=== PATIENT | female | born 1940 | race Caucasian/White ===

== ENCOUNTER → 2017-06-08 | Outpatient (CLI) | payer MEDICARE ==
[~2017-06-08] MED LIST: 8 Hour C500 MG PO; ALEN70 PO; BISA10S PR; CALCAVITD PO; CALCAVITDA PO; CELE200; CELE200 PO; CONEST.625; Calcium Magnes1 EACH PO; DICL25ER PO; DOCU100 PO; ERGO50000 PO; FERGLU300; FERR325 PO; GINKGO BILOBA PO; GINKGO BILOBA120 MG PO; GLUC500 PO; GLUCOSAMINE-MS1 EACH PO; HYDSUL200; HYDSUL200 PO; LEVO750 PO; LEVSOD100; LEVSOD100 PO; LIALDA PO; Lialda1.2 GM PO; MAGN84 PO; MECL25 PO; MESA400ER; Milk Of Ma800 MG/5 M PO; NIFE20; NIFE30ER PO; OMEP40CA12 PO; OXYACE5T PO; OXYC10ER PO; OXYC1TAB11 PO; POTASSIUM GLUC500 MG PO; POTASSIUM GLUCONATE PO; Percocet 5-3251 EACH PO; Prilosec Otc20 MG PO; RXOXYACE PO; SACC250C PO; VALA500 PO; VENL150ER PO; VENL75ER; Zanaflex4 MG PO; [UNRECOGNIZED DRUG - OTHER] PO
== END | disposition home or self-care (01) ==
LOC: LAB SHORT 08:39 → PLD 08:39
DX: C44.319 Basal cell carcinoma of skin of other parts of face (principal)
CPT/HCPCS: 88305

== ENCOUNTER → 2017-06-16 | Outpatient (CLI) | payer MEDICARE ==
[2017-06-18 12:41] LABS: HPV Genotype 16 Not Detected (NOTDET); HPV Genotype 18 Not Detected (NOTDET)
[2017-06-23 11:49] LABS: HPV High Risk Other Not Detected (NOTDET)
== END | disposition home or self-care (01) ==
LOC: OLS 17:17
PROVIDERS: Nurse Practitioner Women's Health
DX: Z12.72 Encounter for screening for malignant neoplasm of vagina (principal); Z91.89 Other specified personal risk factors, not elsewhere classified
CPT/HCPCS: 87624; G0123

== ENCOUNTER → 2017-09-09 | Outpatient (CLI) | payer MEDICARE | LOC: LAB SHORT 10:15 → PLD 10:15 | DX: D48.5 Neoplasm of uncertain behavior of skin (principal) | CPT/HCPCS: 88305 ==

== ENCOUNTER → 2018-06-21 | Outpatient (CLI) | payer MEDICARE ==
[2018-06-23 16:07] LABS: HPV 16 Negative (Negative); HPV 18 Negative (Negative); HPV OTHER HR TYPES Negative (Negative)
== END | disposition home or self-care (01) ==
LOC: LAB 18:45 → LAB SHORT 18:45
PROVIDERS: Nurse Practitioner Women's Health
DX: Z12.72 Encounter for screening for malignant neoplasm of vagina (principal); Z91.89 Other specified personal risk factors, not elsewhere classified
CPT/HCPCS: 87624; G0123

== ENCOUNTER → 2018-09-19 | Outpatient (CLI) | payer MEDICARE ==
[2018-09-21 17:06] LABS: HPV 16 Negative (Negative); HPV 18 Negative (Negative); HPV OTHER HR TYPES Negative (Negative)
== END | disposition home or self-care (01) ==
LOC: LAB SHORT 18:01 → LAB 18:01
PROVIDERS: Nurse Practitioner Women's Health
DX: Z12.72 Encounter for screening for malignant neoplasm of vagina (principal); Z91.89 Other specified personal risk factors, not elsewhere classified
CPT/HCPCS: 87624; G0123

== ENCOUNTER 2019-10-25 20:35 | Emergency (ER) | payer MEDICARE ==
[~2019-10-25] VITALS: Ht 162.6 cm; Wt 72.6 kg
[~2019-10-25 20:35] MED LIST changes: +ACET325 PO; +AMLO5 PO; +EUTHYROX88 MCG PO; +FERSU300 PO; +FLONASE ALLERG9.9 M2 NS; +LISI5 PO; +OMEP20ER PO; +RECLAST 55 MG/100 M IV; +Zovirax Cream 5%2 GM
== END 2019-10-25 21:44 | disposition home or self-care (01) ==
LOC: ER 20:35
DX: Z04.3 Encounter for examination and observation following other accident (principal); Z88.1 Allergy status to other antibiotic agents; Z88.5 Allergy status to narcotic agent; Z88.6 Allergy status to analgesic agent; Z88.8 Allergy status to other drugs, medicaments and biological substances; Z79.899 Other long term (current) drug therapy; Z87.891 Personal history of nicotine dependence; W19.XXXA Unspecified fall, initial encounter
CPT/HCPCS: 93005; 93010; 99284-25

== ENCOUNTER 2020-08-19 13:45 | Day surgery (SDC) | payer MEDICARE ==
[~2020-08-19] VITALS: Ht 160 cm; Wt 98.3 kg
== END 2020-08-19 15:28 | disposition home or self-care (01) ==
LOC: ORSCSDS 13:45
PROVIDERS: Internal Medicine Gastroenterology
PROC: 0DJ08ZZ Inspection of Upper Intestinal Tract, Via Natural or Artificial Opening Endoscopic (ICD-10-PCS; principal; 2020-08-19 14:15)
DX: R13.10 Dysphagia, unspecified (principal); K51.30 Ulcerative (chronic) rectosigmoiditis without complications; R10.13 Epigastric pain; K44.9 Diaphragmatic hernia without obstruction or gangrene; K20.80 Other esophagitis without bleeding; R93.89 Abnormal findings on diagnostic imaging of other specified body structures; F17.210 Nicotine dependence, cigarettes, uncomplicated; Z79.899 Other long term (current) drug therapy
CPT/HCPCS: J2704; J7120

== ENCOUNTER 2021-03-25 05:42 | Inpatient (IN) | payer MEDICARE ==
[~2021-03-25] VITALS: Ht 162.6 cm; Wt 76.5 kg
--- NOTE | 2021-03-25 06:52 | NUR ---
History, Chart, Medications and Allergies reviewed before start of procedure. Patient confirms NPO status and agrees with scheduled surgery. Lungs clear T/O to Auscultation.
[2021-03-25] MEDS ORDERED: CYCL10 PO (06:54)
--- NOTE | 2021-03-25 10:49 | NUR ---
RESUMED CARE OF PATIENT. BIOX 98% ON 2L O2 VIA NC. NC REMOVED. NOW BREATING RA. WILL CONTINUE TO ASSESS VS. ALERT. TALKING. C/O 4/10 ACHING PAIN TO UPPER MIDDLE ABDOMEN. STATES PAIN IS TOLERABLE. DENIES NAUSEA. TOLERATING SIPS OF WATER.
--- NOTE | 2021-03-25 11:24 | NUR ---
DR MONROE AT BEDSIDE SPEAKING TO PATIENT ABOUT SURGERY FINDINGS.
--- NOTE | 2021-03-25 12:12 | NUR ---
VSS. INCISIONS SITES X5 TO ABDOMEN CLEAN, DRY AND INTACT WITH DERMABOND GLUE. NO NOTED DRAINAGE, SWELLING, ERYTHEMA OR BRUISING NOTED. GAIT STEADY. Discharge instructions reviewed with patient. Patient verbalizes understanding. Copy given to patient to take home. Patient States Post-Procedure ride home has been arranged with her friend.
== END 2021-03-25 12:15 | disposition home or self-care (01) | DRG 328 ==
LOC: SURS 05:42 → PRE IP 07:30 → SURS 12:15
PROVIDERS: ADMIT Surgery
PROC: 0DB64ZX Excision of Stomach, Percutaneous Endoscopic Approach, Diagnostic (ICD-10-PCS; principal; 2021-03-25 07:30)
DX: K44.9 Diaphragmatic hernia without obstruction or gangrene (principal); K21.9 Gastro-esophageal reflux disease without esophagitis; I10 Essential (primary) hypertension; Z20.822 Contact with and (suspected) exposure to COVID-19; K31.9 Disease of stomach and duodenum, unspecified; F41.9 Anxiety disorder, unspecified; Z96.652 Presence of left artificial knee joint; E03.9 Hypothyroidism, unspecified; Z96.1 Presence of intraocular lens; Z96.641 Presence of right artificial hip joint; Z87.19 Personal history of other diseases of the digestive system; Z90.49 Acquired absence of other specified parts of digestive tract; Z98.42 Cataract extraction status, left eye; Z98.41 Cataract extraction status, right eye; Z90.710 Acquired absence of both cervix and uterus; Z98.1 Arthrodesis status; Z79.899 Other long term (current) drug therapy; Z88.5 Allergy status to narcotic agent; Z88.6 Allergy status to analgesic agent; Z88.8 Allergy status to other drugs, medicaments and biological substances; Z87.891 Personal history of nicotine dependence; Z90.89 Acquired absence of other organs
CPT/HCPCS: 88305; 88341; 88342; A9270; J0690; J1100; J2250; J2370; J2405; J2704; J3010; J7120

== ENCOUNTER → 2021-04-22 | Outpatient (CLI) | payer MEDICARE ==
[~2021-04-22] MED LIST changes: +CYCL10 PO
== END | disposition home or self-care (01) ==
LOC: LAB SHORT 14:04 → LAB 14:04
DX: D48.5 Neoplasm of uncertain behavior of skin (principal)
CPT/HCPCS: 88305

== ENCOUNTER → 2021-06-16 | Outpatient (CLI) | payer MEDICARE ==
[2021-06-17 19:27] LABS: Adenovirus F 40/41 Not Detected (NOT DETECT); Astrovirus Not Detected (NOT DETECT); Campylobacter Sp Not Detected (NOT DETECT); Cryptosporidium Not Detected (NOT DETECT); Cyclospora Cayetanensis Not Detected (NOT DETECT); E. Coli O157 Not Detected (NOT DETECT); Entamoeba Histolytica Not Detected (NOT DETECT); Enteroaggregative E. coli-EAEC Not Detected (NOT DETECT); Enteropathogenic E. coli-EPEC Not Detected (NOT DETECT); Enterotoxigenic E. coli-ETEC Not Detected (NOT DETECT); Giardia Lamblia Not Detected (NOT DETECT); Norovirus GI/GII Not Detected (NOT DETECT); Plesiomonas Shigelloides Not Detected (NOT DETECT); Rotavirus A Not Detected (NOT DETECT); Salmonella Sp Not Detected (NOT DETECT); Sapovirus Not Detected (NOT DETECT); Shiga Toxin-prod E. coli-STEC Not Detected (NOT DETECT); Shigella/Enteroin E. coli-EIEC Not Detected (NOT DETECT); Vibrio Cholerae Not Detected (NOT DETECT); Vibrio Sp Not Detected (NOT DETECT); Yersinia Enterocolitica Not Detected (NOT DETECT)
== END ==
LOC: LAB SHORT 19:15
PROVIDERS: Physician Assistant Medical
DX: R19.7 Diarrhea, unspecified (principal)
CPT/HCPCS: 0097U

== ENCOUNTER → 2021-06-16 | Outpatient (CLI) | payer MEDICARE ==
[2021-06-16 15:05] LABS: BASOPHILS PERCENT AUTO 1 % (0-2); EOSINOPHILS ABSOLUTE AUTO 0.66 K/mm3 (0.00-0.68); EOSINOPHILS PERCENT AUTO 7 % (0-6); Hematocrit 39.4 % (33.0-51.0); Hemoglobin 12.8 g/dL (11.5-16.0); IMMATURE GRAN ABSOLUTE AUTO 0.14 K/mm3 (0.00-0.10); IMMATURE GRAN PERCENT AUTO 1 % (0-1); LYMPHOCYTES ABSOLUTE AUTO 1.86 K/mm3 (0.84-5.20); LYMPHOCYTES PERCENT AUTO 19 % (21-46); MONOCYTES ABSOLUTE AUTO 0.86 K/mm3 (0.16-1.47); MONOCYTES PERCENT AUTO 9 % (4-13); Mean Corpuscular HGB 31.3 pg (26.0-34.0); Mean Corpuscular HGB Conc 32.5 g/dL (31.5-36.5); Mean Corpuscular Volume 96 fL (80-100); Mean Platelet Volume 9.7 fL (9.1-12.4); NEUTROPHILS ABSOLUTE AUTO 6.34 K/mm3 (1.96-9.15); NEUTROPHILS PERCENT AUTO 64 % (41-73); Platelet Count 466 K/mm3 (150-400); RDW Coefficient Variation 13.5 % (11.7-14.2); RDW Standard Deviation 48.5 fL (35.1-46.3); Red Blood Cell Count 4.09 M/mm3 (3.80-5.20); White Blood Cell Count 9.96 K/mm3 (4.00-11.30)
[2021-06-16 15:19] LABS: Alanine Aminotransfer (ALT/SGP 22 U/L (12-78); Albumin, Blood 3.3 g/dL (3.4-5.0); Albumin/Globulin Ratio 0.9 (0.8-1.8); Alk Phos 85 U/L (40-126); Anion Gap 13 mmol/L (6-16); Aspartate Aminotrans (AST/SGOT 15 U/L (12-37); Bilirubin, Total 0.2 mg/dL (0.1-1.0); Blood Urea Nitrogen 12 mg/dL (8-24); Bun/Creatinine Ratio 19.4 (12.0-20.0); CO2, Blood 28 mmol/L (21-32); Calcium, Blood 9.2 mg/dL (8.5-10.1); Chloride, Blood 102 mmol/L (98-108); Creatinine, Blood 0.62 mg/dL (0.40-1.00); Globulin, Blood 3.7 g/dL (2.2-4.0); Glomerular Filtration Rate >60 (60-); Glucose, Blood 92 mg/dL (70-99); Potassium, Blood 3.6 mmol/L (3.5-5.5); Sodium, Blood 143 mmol/L (136-145)
== END ==
LOC: LAB SHORT 15:01
PROVIDERS: Physician Assistant Medical
DX: R11.2 Nausea with vomiting, unspecified (principal)
CPT/HCPCS: 80053; 85025

== ENCOUNTER → 2021-08-07 | Outpatient (CLI) | payer MEDICARE | END | disposition home or self-care (01) | LOC: LAB SHORT 12:05 | DX: N39.0 Urinary tract infection, site not specified (principal) | CPT/HCPCS: 87077; 87086; 87186 ==

== ENCOUNTER 2022-04-15 09:23 | Day surgery (SDC) | payer MEDICARE ==
[~2022-04-15] VITALS: Ht 162.6 cm; Wt 68.8 kg
[2022-04-15] MEDS ORDERED: METOPROLOL SUCC25 MG (09:57)
[2022-04-15] MEDS ORDERED: VITAMIN D310 MC4 (09:59)
--- NOTE | 2022-04-15 12:23 | NUR ---
04/15/22 1223 LULU RON PT HAD POOR VEINS/DIFFICULT GETTING AN IV 2 STAFF RNS AND AND MA ATTEMPTED 6 TIMES AND A FUNERAL COUNSELOR WAS SUCCESSFUL ON THE 7TH START RIGHT HAND. PT HAD INJURED HER LEFT HAND 3 DAYS PRIOR AND HAD SWELLING. PT ALSO CAME IN WITH CONTUSION /RUPTURED CAPILARIES IN THE RIGHT HAND. TOLD PT TO USE WARM PACKS TO BRUISING/ LEAVE COBAN ON IV SITES FOR 1 HR BEFOR REMOVING. PT HAD NO C/O OF PAIN OR DISCOMFORT WHEN ASKED.
== END 2022-04-15 12:11 | disposition home or self-care (01) ==
LOC: ORSCSDS 09:23
PROVIDERS: Internal Medicine Gastroenterology
PROC: 0DBE8ZX Excision of Large Intestine, Via Natural or Artificial Opening Endoscopic, Diagnostic (ICD-10-PCS; principal; 2022-04-15 10:30)
PROC: 0DBM8ZX Excision of Descending Colon, Via Natural or Artificial Opening Endoscopic, Diagnostic (ICD-10-PCS; principal; 2022-04-15 10:30)
DX: K51.30 Ulcerative (chronic) rectosigmoiditis without complications (principal); K51.40 Inflammatory polyps of colon without complications; Z87.891 Personal history of nicotine dependence; Z79.899 Other long term (current) drug therapy
CPT/HCPCS: 88305; J2704; J7120

== ENCOUNTER → 2022-04-21 | Outpatient (CLI) | payer MEDICARE ==
[~2022-04-21] MED LIST changes: +METOPROLOL SUCC25 MG; +VITAMIN D310 MC4
[2022-04-21 12:55] LABS: BASOPHILS PERCENT AUTO 1 % (0-2); EOSINOPHILS ABSOLUTE AUTO 0.31 K/mm3 (0.00-0.68); EOSINOPHILS PERCENT AUTO 4 % (0-6); Hematocrit 40.6 % (33.0-51.0); Hemoglobin 12.9 g/dL (11.5-16.0); IMMATURE GRAN ABSOLUTE AUTO 0.02 K/mm3 (0.00-0.10); IMMATURE GRAN PERCENT AUTO 0 % (0-1); LYMPHOCYTES ABSOLUTE AUTO 2.05 K/mm3 (0.84-5.20); LYMPHOCYTES PERCENT AUTO 29 % (21-46); MONOCYTES ABSOLUTE AUTO 0.69 K/mm3 (0.16-1.47); MONOCYTES PERCENT AUTO 10 % (4-13); Mean Corpuscular HGB 30.4 pg (26.0-34.0); Mean Corpuscular HGB Conc 31.8 g/dL (31.5-36.5); Mean Corpuscular Volume 96 fL (80-100); Mean Platelet Volume 11.3 fL (9.1-12.4); NEUTROPHILS ABSOLUTE AUTO 4.03 K/mm3 (1.96-9.15); NEUTROPHILS PERCENT AUTO 56 % (41-73); Platelet Count 288 K/mm3 (150-400); RDW Coefficient Variation 14.3 % (11.7-14.2); RDW Standard Deviation 49.9 fL (35.1-46.3); Red Blood Cell Count 4.25 M/mm3 (3.80-5.20)
[2022-04-21 15:21] LABS: Bun/Creatinine Ratio 26.4 (12.0-20.0); Calcium, Blood 9.4 mg/dL (8.5-10.1); Creatinine, Blood 0.65 mg/dL (0.40-1.00); Potassium, Blood 4.1 mmol/L (3.5-5.5)
== END | disposition home or self-care (01) ==
LOC: LAB SHORT 11:13 → LAB 11:13
PROVIDERS: Internal Medicine Gastroenterology
DX: K51.30 Ulcerative (chronic) rectosigmoiditis without complications (principal)
CPT/HCPCS: 36415; 80048; 85025

== ENCOUNTER → 2022-10-13 | Outpatient (CLI) | payer MEDICARE | END | disposition home or self-care (01) | LOC: PLD 11:16 → LAB SHORT 11:16 | DX: L57.0 Actinic keratosis (principal) | CPT/HCPCS: 88305 ==

== ENCOUNTER → 2024-08-04 | Outpatient (CLI) | payer MEDICARE | LOC: LAB 17:08 → LAB SHORT 17:08 | DX: R30.0 Dysuria (principal) | CPT/HCPCS: 87077; 87086; 87186 ==

== ENCOUNTER 2025-03-21 05:14 | Inpatient (IN) | payer MEDICARE ==
[2025-03-21] VITALS (59 sets, daily range): BP systolic 98–165; BP diastolic 54–142
[~2025-03-21] VITALS: Ht 154.9 cm; Wt 69.0 kg
[2025-03-21 05:38] LABS: Calcium, Ionized (POC) 1.07 mmol/L (1.10-1.46); Chloride (POC) 109 mmol/L (98-108); Creatinine (POC) 0.6 mg/dL (0.6-1.0); Glucose (ISTAT POC) 96 mg/dL (70-99); Hematocrit (POC) 38.0 % (36.0-46.0); Hemoglobin (POC) 12.9 g/dL (12.0-16.0); Potassium (POC) 4.3 mmol/L (3.5-5.5); Sodium (POC) 140 mmol/L (135-148); Total CO2 (POC) 24 mmol/L (21-32)
[2025-03-21] MEDS ORDERED: TIZA4 PO (05:42)
[2025-03-21] MEDS ORDERED: GINKGOLD MAX120 MG PO (05:43)
[2025-03-21] MEDS ORDERED: CALCIUM CARBON500 M1 PO (05:43)
[2025-03-21 05:44] LABS: BASOPHILS ABSOLUTE AUTO 0.10 K/mm3 (0.00-0.23); BASOPHILS PERCENT AUTO 1 % (0-2); EOSINOPHILS ABSOLUTE AUTO 0.29 K/mm3 (0.00-0.68); EOSINOPHILS PERCENT AUTO 3 % (0-6); Hematocrit 39.4 % (33.0-51.0); Hemoglobin 12.8 g/dL (11.5-16.0); IMMATURE GRAN ABSOLUTE AUTO 0.02 K/mm3 (0.00-0.10); IMMATURE GRAN PERCENT AUTO 0 % (0-1); LYMPHOCYTES ABSOLUTE AUTO 3.08 K/mm3 (0.84-5.20); LYMPHOCYTES PERCENT AUTO 35 % (21-46); MONOCYTES ABSOLUTE AUTO 0.79 K/mm3 (0.16-1.47); MONOCYTES PERCENT AUTO 9 % (4-13); Mean Corpuscular HGB Conc 32.5 g/dL (31.5-36.5); Mean Corpuscular Volume 95 fL (80-100); NEUTROPHILS ABSOLUTE AUTO 4.66 K/mm3 (1.96-9.15); NEUTROPHILS PERCENT AUTO 52 % (41-73); NRBC ABSOLUTE 0.00 K/mm3 (0.00-0.02); NRBC Auto 0.0 /100 WBC (0.0-0.2); Platelet Count 208 K/mm3 (150-400); RDW Coefficient Variation 14.1 % (11.7-14.2); RDW Standard Deviation 49.1 fL (35.1-46.3)
[2025-03-21] MEDS ORDERED: NS 1,000 ML IV ONE ×2 (05:46→05:50)
[2025-03-21] MEDS ORDERED: Verapamil HCL 2.5 MG/ML 2ML Injection ONE (05:46)
[2025-03-21] MEDS ORDERED: Nitroglycerin 2 MG/20 ML BTL ONE (05:46)
[2025-03-21] MEDS ORDERED: NS 250 ML IV ONE (05:46)
[2025-03-21] MEDS ORDERED: Heparin Sodium 1000 Units/ML 10ML MDV ONE (05:46)
[2025-03-21] MEDS ORDERED: FentaNYL Citrate 50 MCG/ML 2 ML Injection ONE (05:49)
[2025-03-21] MEDS ORDERED: Midazolam HCl 1MG / ML 2ML Vial ONE (05:50)
[2025-03-21 06:02] LABS: Prothrombin Time Results 10.2 Sec (9.7-11.5)
[2025-03-21 06:11] LABS: Alanine Aminotransfer (ALT/SGP 44.0 U/L (12-78); Albumin, Blood 3.7 g/dL (3.4-5.0); Albumin/Globulin Ratio 1.2 (0.8-1.8); Anion Gap 7.0 mmol/L (3-11); Aspartate Aminotrans (AST/SGOT 22.0 U/L (12-37); Bilirubin, Total 0.3 mg/dL (0.1-1.0); Blood Urea Nitrogen 15.0 mg/dL (8-24); CO2, Blood 25.0 mmol/L (21-32); Calcium, Blood 9.5 mg/dL (8.5-10.1); Chloride, Blood 111.0 mmol/L (98-108); Creatinine, Blood 0.54 mg/dL (0.40-1.00); Globulin, Blood 3.2 g/dL (2.2-4.0); Glucose, Blood 103.0 mg/dL (70-99); Potassium, Blood 3.7 mmol/L (3.5-5.5); Sodium, Blood 139.0 mmol/L (136-145); Total Protein, Blood 6.9 g/dL (6.4-8.2)
[2025-03-21] MEDS ORDERED: Metoprolol Tartrate 5 ML IV ONE (06:11)
--- NOTE | 2025-03-21 07:00 | NUR ---
ARRIVAL FROM [facility] [employer] PT ARRIVED VIA BE. ALERT AND ORIENTED X 3. 0 C/O PAIN OR SOB. TR BAND ON RT RADIAL WITH SLIGHT DRAINAGE ON IT. AFIB 140. CARDIZEN DRIP STARTED AT 5MG AND WILL TITRATE AND MONITOR. DIPESHWICK LOOKED BACK UP AFTER BED BATH DUE TO INCONTENANCE. WILL BE BROUGHT BACK. PERSONAL BELONGINGS OF PURSE, GLASSESS, WALLET, AND PHONE LOCKED IN PT'S LOCK CABINET.
[2025-03-21] MEDS ORDERED: NS 250 ML IV SCH (07:05)
[2025-03-21] MEDS ORDERED: Diltiazem HCl 5 MG / ML 10ML Vial IV ONE (07:10)
[2025-03-21] MEDS ORDERED: Diltiazem HCL 125MG/D5 125ML IV SCH (07:15)
[2025-03-21] MEDS ORDERED: Diltiazem HCl 5 MG / ML 5ML Vial IV ONE (07:15)
[2025-03-21] MEDS ORDERED: Dose Adjust by Pharmacy XX STA ×2 (07:20→15:03)
[2025-03-21] MEDS ORDERED: Heparin Sodium 5000 Units/ML 1ML MDV IV ONE (07:25)
[2025-03-21] MEDS ORDERED: Heparin Sodium,Porcine/0.5 NS 500 ML IV SCH (07:25)
[2025-03-21 07:31] LABS: CHOL/HDL RATIO 2.1; Cholesterol 197 mg/dL (50-200); HDL Cholesterol 96 mg/dL (>39); LDL/HDL RATIO 0.9; Low Density Lipoprotein Chol 86 mg/dL (0-110); Triglycerides 75 mg/dL (30-160); Very Low Density Lipoprot Chol 15 mg/dL (6-32)
[2025-03-21 08:14] LABS: BASOPHILS ABSOLUTE AUTO 0.08 K/mm3 (0.00-0.23); BASOPHILS PERCENT AUTO 1 % (0-2); EOSINOPHILS ABSOLUTE AUTO 0.10 K/mm3 (0.00-0.68); EOSINOPHILS PERCENT AUTO 1 % (0-6); Hematocrit 41.1 % (33.0-51.0); Hemoglobin 13.4 g/dL (11.5-16.0); IMMATURE GRAN ABSOLUTE AUTO 0.06 K/mm3 (0.00-0.10); IMMATURE GRAN PERCENT AUTO 1 % (0-1); LYMPHOCYTES ABSOLUTE AUTO 1.75 K/mm3 (0.84-5.20); LYMPHOCYTES PERCENT AUTO 18 % (21-46); MONOCYTES ABSOLUTE AUTO 0.57 K/mm3 (0.16-1.47); MONOCYTES PERCENT AUTO 6 % (4-13); Mean Corpuscular HGB Conc 32.6 g/dL (31.5-36.5); Mean Corpuscular Volume 97 fL (80-100); NEUTROPHILS ABSOLUTE AUTO 7.44 K/mm3 (1.96-9.15); NEUTROPHILS PERCENT AUTO 74 % (41-73); NRBC ABSOLUTE 0.00 K/mm3 (0.00-0.02); NRBC Auto 0.0 /100 WBC (0.0-0.2); Platelet Count 241 K/mm3 (150-400); RDW Coefficient Variation 14.2 % (11.7-14.2); RDW Standard Deviation 50.8 fL (35.1-46.3)
--- NOTE | 2025-03-21 15:41 | NUR ---
Pt. is resting in bed but responds when I enter he room. Pt. is pleasant. facilitated a life review and considered matters of her tono and background. A delightful conversation took place about the Pts. perspective regarding tono and hope. Listen with engagement and interest. Pt. verbalized gratitude for the spiritual care visit and welcomed this equipment scheduler to return.
--- NOTE | 2025-03-21 16:58 | NUR ---
CHARGE NURSE MARIO ST NOTIFIED OF 3-6 SECOND PAUSES AND cHARGE NURSE CALLED AND UPDATED DR. HAWKINS X 2 CARDIZEN TITRATED DOWN AND PT TO CONTINUED TO BEW MONITORED.PT REMAIN ON RA WITH O2 SAT AT 100%. SCD'S TURNED OFF DUE TO PT C/O OF IT CAUSING MUSCLE CRAMPS.
--- NOTE | 2025-03-21 17:37 | NUR ---
END OF SHIFT PT REMAINS ON CARDIZEN 5MG AND HEPARIN AT 12 UNITS. 0 C/O PAIN. PT FED HERSELF 80% OF SUPPER AND THEN MODERATE DRAINAGE IN RT RADIAL DRSG INCREASED TO LARGE AMOUNHT DRAINAGE. 0 HEMATOMA OR PAIN. CHARGE NURSE MARIO ASSESS AND ARM BOARD REAPPLIED. PT ENCOURAGE TO LET RT ARM REST AND USE LT ARM. PT REMAINS IN CONVERTED SB-SR 58-62. SBP REMAINING 130-140. RA O2 SAT 100% PO MEDICATIONS WILL BE RESTARTED IN AM STATED DR. ALMANZA.
[2025-03-21] MEDS ORDERED: Clarify Drug Order XX ONE (23:05)
[2025-03-22] VITALS (46 sets, daily range): BP systolic 115–160; BP diastolic 50–126
[2025-03-22] MEDS ORDERED: Clarify Drug Order XX ONE (05:00)
--- NOTE | 2025-03-22 05:01 | NUR ---
SHIFT SUMMARY PT A/OX4, ON ROOM AIR SATS >92%, SINUS RHYTHM HR 60-80'S, BP STABLE. DENIES CP/PRESSURE. PUREWICK IN PLACE FOR INCONTINENCE AND URGENCY. DENIES N/V. PT STATES SHE "FEELS LIKE HER REGULAR SELF AGAIN", WAS ABLE TO GET SLEEP T/O MOST OF THE SHIFT BETWEEN Q4 ASSESSMENTS. R RADIAL SITE DRESSING HAS NO NEW OOZING NOTED, NO HEMATOMA, NOT PAINFUL PER PT. HAS CARDIZEM AND HEPARIN INFUSING. NO ACUTE EVENTS, CALL LIGHT IN REACH.
[2025-03-22] MEDS ORDERED: Cholecalciferol 1000 Unit Tablet (=25MCG) PO SCH (09:00)
[2025-03-22] MEDS ORDERED: Calcium Carbonate 1,250 MG TABLET PO SCH (09:00)
[2025-03-22 11:11] LABS: BASOPHILS ABSOLUTE AUTO 0.05 K/mm3 (0.00-0.23); BASOPHILS PERCENT AUTO 0 % (0-2); EOSINOPHILS ABSOLUTE AUTO 0.03 K/mm3 (0.00-0.68); EOSINOPHILS PERCENT AUTO 0 % (0-6); Hematocrit 40.0 % (33.0-51.0); Hemoglobin 13.0 g/dL (11.5-16.0); IMMATURE GRAN ABSOLUTE AUTO 0.07 K/mm3 (0.00-0.10); IMMATURE GRAN PERCENT AUTO 1 % (0-1); LYMPHOCYTES ABSOLUTE AUTO 1.72 K/mm3 (0.84-5.20); LYMPHOCYTES PERCENT AUTO 12 % (21-46); MONOCYTES ABSOLUTE AUTO 1.38 K/mm3 (0.16-1.47); MONOCYTES PERCENT AUTO 9 % (4-13); Mean Corpuscular HGB Conc 32.5 g/dL (31.5-36.5); Mean Corpuscular Volume 96 fL (80-100); NEUTROPHILS ABSOLUTE AUTO 11.48 K/mm3 (1.96-9.15); NEUTROPHILS PERCENT AUTO 78 % (41-73); NRBC ABSOLUTE 0.00 K/mm3 (0.00-0.02); NRBC Auto 0.0 /100 WBC (0.0-0.2); Platelet Count 224 K/mm3 (150-400); RDW Coefficient Variation 14.2 % (11.7-14.2); RDW Standard Deviation 50.2 fL (35.1-46.3)
[2025-03-22] MEDS ORDERED: Dose Adjust by Pharmacy XX STA (11:28)
[2025-03-22] MEDS ORDERED: Heparin Sodium 5000 Units/ML 1ML MDV IV ONE (11:30)
[2025-03-22] MEDS ORDERED: METO50ER PO (15:16)
[2025-03-22] MEDS ORDERED: VITAMIN D5000 UNIT PO (15:18)
[2025-03-22] MEDS ORDERED: ELIQUIS5 M2 PO (15:18)
--- NOTE | 2025-03-22 16:52 | NUR ---
DISCHARGE PT UP IN ROOM TO DRESS SELF. PT VERBALIZED UNDERSTANDING OF ALL DISCHARGE INSTRUCTIONS AND MEDICATIONS. IV'S REMOVED. PT TAKEN TO [facility] TO WAIT FOR RIDE HOME AT THE REQUEST OF PT. ALL BELONGINGS SENT HOME WITH PT.
== END 2025-03-22 17:07 | disposition home or self-care (01) | DRG 281 ==
LOC: ER 05:14 → ICUE 06:02
PROVIDERS: Emergency Medicine; Internal Medicine; ADMIT Internal Medicine
PROC: B2111ZZ Fluoroscopy of Multiple Coronary Arteries using Low Osmolar Contrast (ICD-10-PCS; principal; 2025-03-21)
PROC: 4A023N7 Measurement of Cardiac Sampling and Pressure, Left Heart, Percutaneous Approach (ICD-10-PCS; 2025-03-21)
DX: I48.0 Paroxysmal atrial fibrillation (principal); F33.9 Major depressive disorder, recurrent, unspecified; I21.A1 Myocardial infarction type 2; R07.0 Pain in throat; I10 Essential (primary) hypertension; E03.9 Hypothyroidism, unspecified; M81.0 Age-related osteoporosis without current pathological fracture; I08.1 Rheumatic disorders of both mitral and tricuspid valves; I25.10 Atherosclerotic heart disease of native coronary artery without angina pectoris; Z88.8 Allergy status to other drugs, medicaments and biological substances; Z88.5 Allergy status to narcotic agent; Z88.6 Allergy status to analgesic agent; Z88.1 Allergy status to other antibiotic agents; Z87.891 Personal history of nicotine dependence; Z87.19 Personal history of other diseases of the digestive system; Z90.49 Acquired absence of other specified parts of digestive tract; Z90.710 Acquired absence of both cervix and uterus; Z79.899 Other long term (current) drug therapy; Z79.890 Hormone replacement therapy
CPT/HCPCS: 36415; 71045; 76937; 80047; 80053; 80061; 82565; 82947; 84484; 85014; 85025; 85347; 85520; 85610; 85651; 85730; 92978; 93005; 93010; 93306; 93458; 99291-25; A6590; A9270; C1753; C1769; C1887; C1894; J1644; J2250; J3010; J7030; J7050; Q9967

== ENCOUNTER → 2025-04-25 | Outpatient (CLI) | payer MEDICARE ==
[~2025-04-25] MED LIST changes: +CALCIUM CARBON500 M1 PO; +ELIQUIS5 M2 PO; +GINKGOLD MAX120 MG PO; +METO50ER PO; +TIZA4 PO; +VITAMIN D5000 UNIT PO
[2025-04-25 15:05] LABS: BASOPHILS ABSOLUTE AUTO 0.08 K/mm3 (0.00-0.23); BASOPHILS PERCENT AUTO 1 % (0-2); EOSINOPHILS ABSOLUTE AUTO 0.20 K/mm3 (0.00-0.68); EOSINOPHILS PERCENT AUTO 2 % (0-6); Hematocrit 35.2 % (33.0-51.0); Hemoglobin 11.3 g/dL (11.5-16.0); IMMATURE GRAN ABSOLUTE AUTO 0.03 K/mm3 (0.00-0.10); IMMATURE GRAN PERCENT AUTO 0 % (0-1); LYMPHOCYTES ABSOLUTE AUTO 1.81 K/mm3 (0.84-5.20); LYMPHOCYTES PERCENT AUTO 22 % (21-46); MONOCYTES ABSOLUTE AUTO 0.84 K/mm3 (0.16-1.47); MONOCYTES PERCENT AUTO 10 % (4-13); Mean Corpuscular HGB Conc 32.1 g/dL (31.5-36.5); Mean Corpuscular Volume 97 fL (80-100); NEUTROPHILS ABSOLUTE AUTO 5.21 K/mm3 (1.96-9.15); NEUTROPHILS PERCENT AUTO 64 % (41-73); NRBC ABSOLUTE 0.00 K/mm3 (0.00-0.02); NRBC Auto 0.0 /100 WBC (0.0-0.2); Platelet Count 228 K/mm3 (150-400); RDW Coefficient Variation 14.2 % (11.7-14.2); RDW Standard Deviation 51.0 fL (35.1-46.3)
[2025-04-25 15:19] LABS: Alanine Aminotransfer (ALT/SGP 124.0 U/L (12-78); Albumin, Blood 3.6 g/dL (3.4-5.0); Albumin/Globulin Ratio 1.2 (0.8-1.8); Anion Gap 13.0 mmol/L (3-11); Aspartate Aminotrans (AST/SGOT 76.0 U/L (12-37); Bilirubin, Total 0.3 mg/dL (0.1-1.0); Blood Urea Nitrogen 23.0 mg/dL (8-24); CO2, Blood 26.0 mmol/L (21-32); Calcium, Blood 9.4 mg/dL (8.5-10.1); Chloride, Blood 105.0 mmol/L (98-108); Creatinine, Blood 0.81 mg/dL (0.40-1.00); Globulin, Blood 3.1 g/dL (2.2-4.0); Glucose, Blood 94.0 mg/dL (70-99); Potassium, Blood 4.0 mmol/L (3.5-5.5); Sodium, Blood 140.0 mmol/L (136-145); Total Protein, Blood 6.7 g/dL (6.4-8.2)
== END ==
LOC: LAB 14:59 → LAB SHORT 14:59
PROVIDERS: Physician Assistant
DX: R06.02 Shortness of breath (principal); R10.9 Unspecified abdominal pain
CPT/HCPCS: 80053; 83690; 83880; 84484; 85025

== ENCOUNTER → 2025-04-26 | Outpatient (CLI) | payer MEDICARE ==
[2025-04-26 11:00] LABS: Alanine Aminotransfer (ALT/SGP 113.0 U/L (12-78); Albumin, Blood 3.6 g/dL (3.4-5.0); Albumin/Globulin Ratio 1.0 (0.8-1.8); Anion Gap 13.0 mmol/L (3-11); Aspartate Aminotrans (AST/SGOT 55.0 U/L (12-37); Bilirubin, Total 0.3 mg/dL (0.1-1.0); Blood Urea Nitrogen 16.0 mg/dL (8-24); CO2, Blood 30.0 mmol/L (21-32); Calcium, Blood 9.6 mg/dL (8.5-10.1); Chloride, Blood 106.0 mmol/L (98-108); Creatinine, Blood 0.82 mg/dL (0.40-1.00); Globulin, Blood 3.5 g/dL (2.2-4.0); Glucose, Blood 93.0 mg/dL (70-99); Potassium, Blood 4.1 mmol/L (3.5-5.5); Sodium, Blood 145.0 mmol/L (136-145); Total Protein, Blood 7.1 g/dL (6.4-8.2)
== END ==
LOC: LAB SHORT 10:46 → LAB 10:46
PROVIDERS: Chiropractor
DX: I50.9 Heart failure, unspecified (principal)
CPT/HCPCS: 80053